=== PATIENT | male | born 1940 | race Caucasian/White ===

== ENCOUNTER → 2017-11-06 | Outpatient (CLI) | payer OTHER ==
[~2017-11-06] VITALS: Ht 182.9 cm; Wt 90.7 kg
[~2017-11-06] MED LIST: ASPIRIN EC81 M1 PO; ATORVASTATIN CA10 MG PO; CARVEDILOL6.25 MG PO; FLOMAX0.4 MG PO; INSPRA25 MG PO; LISINOPRIL20 MG PO; MAGNESIUM400 MG PO; PACERONE 200 M200 M1 PO; PROTONIX40 M2 PO; SPIRONOLACTONE25 MG PO
--- NOTE | ~2017-11-06 | CATHLAB ---
[place] [address] [facility] [place] [address] INVASIVE PROCEDURE REPORT Name: KAYMORIS VILLANUEVA [id number] Admission: 11/06/17 Attend Phys: Cristi Flores, Discharge: Date of : 38 Date of Service: 11/09/17 1838 Report #: [id number] THIS REPORT FOR: //name// APPROVED REPORT Study performed: 11/06/2017 08:18:48 Patient Details Patient Status: Out-Patient Room #: The patient is a 77 year-old male Event Personnel Cristi Flores Wheel Shop Supervisor, Ernesto Reyna RN RN, Chevy Nugent RN, Piper Alicia Greenwood, Christine RTR Monitor Procedures Performed Coronary Angiogram, Supravalvular Aortogram, Abdominal Aortogram, Cons. Sedation, Mynx Closure Indication Chest pain Procedure Narrative The patient was brought electively to the Cardiac Catheterization Laboratory and was prepped and draped in a sterile manner. A PINNACLE 6FR Sheath #[id number] sheath was inserted into the right femoral artery. Coronary angiography was performed using coronary diagnostic catheters. The right coronary system was accessed and visualized with a AR MOD catheter. The left coronary system was accessed and visualized with a JL 5 catheter. Left ventriculogram was performed in DE LEON projection. An aortogram of the abdominal aorta was performed. Pre-demployment femoral angiogram was performed . Closure device was deployed with a 6 Fr Mynx. The patient tolerated the procedure well and there were no complications associated with the procedure. There was no hematoma. Intraoperative Conscious Sedation Sedation start time: 08:40 Case end Time: 09:16 Fentanyl 50.0 mcg Versed 1.5 mg Fluoro Time: 10.26 minutes Dose: DAP 03412.85 cGycm2 1250 mGy Contrast Type and Amount: Omnipaque [address] [facility] [place] [address] INVASIVE PROCEDURE REPORT Name: MORIS VILLANUEVA [id number] Admission: 11/06/17 Attend Phys: Cristi Flores, Discharge: Date of : 38 Date of Service: 11/09/17 1838 Report #: [id number] Hemodynamics The aortic pressure is 133/63 mmHg with a mean of 73 mmHg. Conclusion #1 left main large short giving rise to LAD and circumflex no occlusive disease #2 LAD with mild irregularities extends around the apex. No significant occlusive disease noted #3 nondominant circumflex moderate disease with a 60% proximal lesion filling a large OM #4 dominant right difficult to engage with mild to moderate disease throughout no high-grade occlusive disease #5 supravalvular aortogram revealing 1+ aortic insufficiency normal aortic root size. Unable to cross valve due to significant tortuosity we'll evaluate aortic valve by echo. #6 abdominal aortogram revealing mild aortic ectasia small infrarenal aortic aneurysm we'll evaluate noninvasively. Renal arteries appear to be mildly disease bilaterally Recommendations and plans: Continue aggressive risk factor modification. No indication for coronary or peripheral intervention. We'll obtain abdominal ultrasound in follow-up for evaluation of small aortic aneurysm or aortic ectasia abdominal. <ELECTRONICALLY SIGNED> By: Cristi Flores MD, [facility] 11/09/171837 37 37 Cristi Flores MD, FACC /INF
[2017-11-06 07:10] VITALS: BP 135/76
[2017-11-06 07:31] LABS: HEMATOCRIT 38.9 % (42.0-52.0); HEMOGLOBIN 13.5 gm/dL (14.0-18.0); MCH 32.2 pg (26.0-34.0); MCHC 34.7 g/dL (28.0-37.0); RBC 4.18 mil/uL (4.50-6.00); RDW 12.4 % (10.5-14.5); WBC 9.9 thou/uL (4.0-11.0)
[2017-11-06 07:39] LABS: CALCIUM 9.1 mg/dL (8.5-10.1); CREATININE 1.1 mg/dL (0.7-1.3); POTASSIUM 4.4 mmol/L (3.5-5.1)
== END | disposition home or self-care (01) ==
LOC: CATH 06:35
PROVIDERS: Internal Medicine Cardiovascular Disease
DX: I25.10 Atherosclerotic heart disease of native coronary artery without angina pectoris (principal); I35.1 Nonrheumatic aortic (valve) insufficiency; I77.811 Abdominal aortic ectasia; I70.1 Atherosclerosis of renal artery; I10 Essential (primary) hypertension; E78.5 Hyperlipidemia, unspecified; K21.9 Gastro-esophageal reflux disease without esophagitis; Z98.890 Other specified postprocedural states; Z79.82 Long term (current) use of aspirin; Z79.899 Other long term (current) drug therapy

== ENCOUNTER → 2020-02-03 | Outpatient (CLI) | payer OTHER | LOC: SJCVCIMAG 01-05 08:50 | PROVIDERS: ATTEND Internal Medicine Cardiovascular Disease | DX: I71.4 Abdominal aortic aneurysm, without rupture (principal); R94.31 Abnormal electrocardiogram [ECG] [EKG]; I25.10 Atherosclerotic heart disease of native coronary artery without angina pectoris; I10 Essential (primary) hypertension; E78.00 Pure hypercholesterolemia, unspecified; I47.2 Ventricular tachycardia; I77.89 Other specified disorders of arteries and arterioles; Z79.899 Other long term (current) drug therapy ==

== ENCOUNTER → 2020-11-21 | Outpatient (CLI) | payer OTHER, MEDICARE | LOC: SJCVC 09:32 → SJCVCIMAG 09:32 | PROVIDERS: ATTEND Internal Medicine Cardiovascular Disease | DX: I08.3 Combined rheumatic disorders of mitral, aortic and tricuspid valves (principal); I27.20 Pulmonary hypertension, unspecified; I11.9 Hypertensive heart disease without heart failure; R94.31 Abnormal electrocardiogram [ECG] [EKG]; I45.10 Unspecified right bundle-branch block; I25.10 Atherosclerotic heart disease of native coronary artery without angina pectoris; E78.00 Pure hypercholesterolemia, unspecified; I49.8 Other specified cardiac arrhythmias; I77.89 Other specified disorders of arteries and arterioles; I47.2 Ventricular tachycardia; Z88.8 Allergy status to other drugs, medicaments and biological substances; Z79.82 Long term (current) use of aspirin; Z79.899 Other long term (current) drug therapy ==

== ENCOUNTER → 2021-06-19 | Outpatient (CLI) | payer OTHER, MEDICARE | LOC: SJCVC 13:53 | PROVIDERS: ATTEND Internal Medicine Cardiovascular Disease | DX: R94.31 Abnormal electrocardiogram [ECG] [EKG] (principal); I49.3 Ventricular premature depolarization; I25.10 Atherosclerotic heart disease of native coronary artery without angina pectoris; I10 Essential (primary) hypertension; E78.00 Pure hypercholesterolemia, unspecified; I47.2 Ventricular tachycardia; I38 Endocarditis, valve unspecified; I65.23 Occlusion and stenosis of bilateral carotid arteries; I49.8 Other specified cardiac arrhythmias; I71.4 Abdominal aortic aneurysm, without rupture; Z72.89 Other problems related to lifestyle; Z79.82 Long term (current) use of aspirin; Z79.899 Other long term (current) drug therapy; Z88.7 Allergy status to serum and vaccine ==